=== PATIENT | male | born 1970 | race Caucasian/White ===

== ENCOUNTER 2017-06-10 11:43 | Emergency (ER) | payer OTHER ==
[~2017-06-10] VITALS: Ht 175.3 cm; Wt 124.7 kg
--- OUTSIDE RECORDS SUMMARY | 2017-06-10 11:48 | External Medical Summary Rpt | CCD ---
Demographics Preferred Language Kyrgyz Marital Status Unknown Alevism Affiliation Unknown Race Unknown Ethnic Group Unknown Author Author , LINDY ISRAEL Address Unknown Phone Immunization No patient found.
--- OUTSIDE RECORDS SUMMARY | 2017-06-10 11:48 | External Medical Summary Rpt | CCD ---
Author Author , BUDDY ISRAEL Address Unknown Phone .[employer] Purpose Continuity of Care Document - through 2016
--- OUTSIDE RECORDS SUMMARY | 2017-06-10 11:48 | External Medical Summary Rpt | CCD ---
Author Author , BUDDY ISRAEL Address Unknown Phone [email or web address] Purpose Continuity of Care Document - through 2016
--- OUTSIDE RECORDS SUMMARY | 2017-06-10 11:48 | External Medical Summary Rpt | CCD ---
Author Author [employer] [facility] [employer] Address Unknown Phone Unavailable Purpose Continuity of Care Document - through 2016
--- OUTSIDE RECORDS SUMMARY | 2017-06-10 11:48 | External Medical Summary Rpt | CCD ---
Demographics Preferred Language Italian Marital Status Unknown Church Affiliation Unknown Race Unknown Ethnic Group Unknown Author Author , LINDY ISRAEL Address Unknown Phone Immunization No patient found.
--- NOTE | 2017-06-10 12:04 | Urgent Treatment Center Report ---
History of Present Issue Date/Time Seen by Provider 06/10/17 1204 Visit Reason Pt arrived:Walked Presenting Problem:HEADACHE, VOMITING, FEVER X2 DAYS Location if Accident: Onset of symptoms date/time:/ or onset unknown for:MEDICAL HX UNKNOWN Have you (or family members/close friends) recently traveled outside the [place]? N If Yes, where/when: Have you had exposure to infectious disease within the past month? TB? Other? Specify: c/o fever, aches, chills. Woke up yesterday and didn't feel well. Went on to work but around 1130, vomited once so went on home. Rested most of the day yesterday and last night. Woke up this morning feeling hot. Temp 101. recently ill "but nothing like this. It was something different.". 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 Source patient Exam Limitations no limitations ALLERGIES Coded Allergies: No Known Allergies (06/10/17) Home Medications Reported Medications No Known Home Medications History Medical History General CAD? No Angina: No CA: No Hypertension? No Hyperlipidemia? No CHF? No DVT? No PE? No COPD? No Asthma? No Anemia? No GERD? No Hypothyroidism? No CVA? No Seizures? No Diabetes? No Renal Insuffiency? No UTI? No Stones? No BPH? No GB Disease: No Immunization HX DT/Tetanus Unknown Surgical Hx Previous Surgery?N Social History Smoking Hx Smoker: Never Smoker Tobacco: No Alcohol Alcohol: No Review of Systems All Other Systems Reviewed and Negative Constitutional see HPI, denies weakness Eyes denies drainage, denies vision change ENT nose discharge, nose congestion. denies: ear pain, throat pain. Respiratory denies cough, denies shortness of breath Cardiovascular denies chest pain, denies palpitations Gastrointestinal denies abdominal pain, denies constipation, denies diarrhea, vomiting (only yesterday) Genitourinary denies: dysuria, frequency, hesitancy, hematuria. Musculoskeletal see HPI, denies back pain, denies joint swelling, denies muscle pain, denies neck pain Skin denies lesions, denies lumps, denies rash Psychiatric/Neurological headache (resolved w/ fever fire engine operator) Physical Exam Vital Signs Vital Signs Date Time Temp Pulse Resp B/P Pulse O2 O2 Flow FiO2 Ox Delivery Rate 06/10 1154 98.9 106 18 143/89 96 General Appearance no apparent distress, obese Eye Exam - bilateral eye normal exam Ear, Nose, Throat normal ENT inspection Neck non-tender, supple, full range of motion Respiratory Status No: respiratory distress, use of accessory muscles, productive cough, non productive cough. Lung Sounds anterior: lungs clear. posterior: lungs clear. bilateral: lungs clear. Cardiovascular no peripheral edema, no murmur, tachycardia Gastrointestinal normal bowel sounds, non tender, soft Neurologic alert, oriented x 3 Mental status normal mood/affect Skin normal color, slightly diaphoretic Lymphatic no adenopathy Medical Decision Making LABS/Meds/Orders Pt receiving controlled substance in ED? No Results/Orders Laboratory Tests 06/10/17 1200: Influenza Type A Ag NOT DETECTED, Influenza Type B Ag NOT DETECTED Orders Procedure Date/time Status [facility] FLU A,B 06/10 1200 Complete Departure Departure Time of Disposition 1225 Disposition DC Home or Self Care(routine) Clinical Impression Primary Impression: Viral illness Condition STABLE Referrals NO REFERRAL Follow up with primary care or return to [facility] immediately for new or worsening symptoms. If no noticeable improvement over the next 36-48 hours, follow up for further evaluation. Patient Instructions DI for Viral Syndrome Additional Instructions * No sign of bacterial infection. Likely viral. Virus can take 7-14 days to run their course but if no noticeable improvement over the next 48 hours, follow up for further evaluation. Return immediately for new or worsening symptoms. * Monitor Temp. Tylenol every 4 hours as needed no more then 5 times a day or 4000mg in 24 hours and/or ibuprofen every 6 hours as needed no more then 3200mg in 24 hours (as long as your primary care doctor has told you that it is ok to take both) for fever/aches/pain. ER if fever no less than 101 despite tylenol and ibuprofen * Sweating is commone when fever breaks * Rest and LTOS of fluids Discharge Counseling Counseled pt/family regarding diagnosis, test results, medications/RX, home care, follow up needs Prescriptions Current Visit Scripts No Known Home Medications at 1242
--- NOTE | 2017-06-10 12:04 | Urgent Treatment Center Report ---
History of Present Issue Date/Time Seen by Provider 06/10/17 1204 Visit Reason Pt arrived:Walked Presenting Problem:HEADACHE, VOMITING, FEVER X2 DAYS Location if Accident: Onset of symptoms date/time:/ or onset unknown for:MEDICAL HX UNKNOWN Have you (or family members/close friends) recently traveled outside the [place]? N If Yes, where/when: Have you had exposure to infectious disease within the past month? TB? Other? Specify: c/o fever, aches, chills. Woke up yesterday and didn't feel well. Went on to work but around 1130, vomited once so went on home. Rested most of the day yesterday and last night. Woke up this morning feeling hot. Temp 101. recently ill "but nothing like this. It was something different.". 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 Source patient Exam Limitations no limitations ALLERGIES Coded Allergies: No Known Allergies (06/10/17) Home Medications Reported Medications No Known Home Medications History Medical History General CAD? No Angina: No OK: No Hypertension? No Hyperlipidemia? No CHF? No DVT? No PE? No COPD? No Asthma? No Anemia? No GERD? No Hypothyroidism? No CVA? No Seizures? No Diabetes? No Renal Insuffiency? No UTI? No Stones? No BPH? No GB Disease: No Immunization HX DT/Tetanus Unknown Surgical Hx Previous Surgery?N Social History Smoking Hx Smoker: Never Smoker Tobacco: No Alcohol Alcohol: No Review of Systems All Other Systems Reviewed and Negative Constitutional see HPI, denies weakness Eyes denies drainage, denies vision change ENT nose discharge, nose congestion. denies: ear pain, throat pain. Respiratory denies cough, denies shortness of breath Cardiovascular denies chest pain, denies palpitations Gastrointestinal denies abdominal pain, denies constipation, denies diarrhea, vomiting (only yesterday) Genitourinary denies: dysuria, frequency, hesitancy, hematuria. Musculoskeletal see HPI, denies back pain, denies joint swelling, denies muscle pain, denies neck pain Skin denies lesions, denies lumps, denies rash Psychiatric/Neurological headache (resolved w/ fever engineering clerk) Physical Exam Vital Signs Vital Signs Date Time Temp Pulse Resp B/P Pulse O2 O2 Flow FiO2 Ox Delivery Rate 06/10 1154 98.9 106 18 143/89 96 General Appearance no apparent distress, obese Eye Exam - bilateral eye normal exam Ear, Nose, Throat normal ENT inspection Neck non-tender, supple, full range of motion Respiratory Status No: respiratory distress, use of accessory muscles, productive cough, non productive cough. Lung Sounds anterior: lungs clear. posterior: lungs clear. bilateral: lungs clear. Cardiovascular no peripheral edema, no murmur, tachycardia Gastrointestinal normal bowel sounds, non tender, soft Neurologic alert, oriented x 3 Mental status normal mood/affect Skin normal color, slightly diaphoretic Lymphatic no adenopathy Medical Decision Making LABS/Meds/Orders Pt receiving controlled substance in ED? No Results/Orders Laboratory Tests 06/10/17 1200: Influenza Type A Ag NOT DETECTED, Influenza Type B Ag NOT DETECTED Orders Procedure Date/time Status [facility] FLU A,B 06/10 1200 Complete Departure Departure Time of Disposition 1225 Disposition DC Home or Self Care(routine) Clinical Impression Primary Impression: Viral illness Condition STABLE Referrals NO REFERRAL Follow up with primary care or return to [facility] immediately for new or worsening symptoms. If no noticeable improvement over the next 36-48 hours, follow up for further evaluation. Patient Instructions DI for Viral Syndrome Additional Instructions * No sign of bacterial infection. Likely viral. Virus can take 7-14 days to run their course but if no noticeable improvement over the next 48 hours, follow up for further evaluation. Return immediately for new or worsening symptoms. * Monitor Temp. Tylenol every 4 hours as needed no more then 5 times a day or 4000mg in 24 hours and/or ibuprofen every 6 hours as needed no more then 3200mg in 24 hours (as long as your primary care doctor has told you that it is ok to take both) for fever/aches/pain. ER if fever no less than 101 despite tylenol and ibuprofen * Sweating is commone when fever breaks * Rest and LTOS of fluids Discharge Counseling Counseled pt/family regarding diagnosis, test results, medications/RX, home care, follow up needs Prescriptions Current Visit Scripts No Known Home Medications at 1242
[2017-06-10 12:31] VITALS: BP 143/89
== END 2017-06-10 12:32 | disposition home or self-care (01) ==
LOC: UTC 11:43
DX: B34.9 Viral infection, unspecified (principal)

== ENCOUNTER → 2017-06-27 | Outpatient (CLI) | payer OTHER | LOC: SL 17:06 | DX: R53.83 Other fatigue (principal); E66.9 Obesity, unspecified; R06.83 Snoring ==